=== PATIENT | female | born 1940 | race Caucasian/White ===

== ENCOUNTER 2016-12-20 06:59 | Observation (INO) | payer MEDICARE, OTHER ==
[2016-12-20] VITALS (28 sets, daily range): BP systolic 75–175; BP diastolic 41–123; PULSE 45–84; RESP 13–27; Ht 162.6 cm; Wt 62.0 kg
[~2016-12-20] VITALS: Ht 162.6 cm; Wt 62.0 kg
[2016-12-20] MEDS ORDERED: ASPI-664 PO (07:38)
[2016-12-20] MEDS ORDERED: TICA90TA PO (07:38)
[2016-12-20] MEDS ORDERED: PRAM0.25 PO (07:38)
[2016-12-20] MEDS ORDERED: OXYB5TAB22 PO (07:39)
[2016-12-20] MEDS ORDERED: ESOM40CA PO (07:41)
[2016-12-20] MEDS ORDERED: SITA1TAB5 PO (07:41)
[2016-12-20] MEDS ORDERED: GLIM1TAB2 PO (07:42)
[2016-12-20] MEDS ORDERED: LEVO50TA71 PO (07:42)
[2016-12-20] MEDS ORDERED: CARV6.2579 PO (07:43)
[2016-12-20] MEDS ORDERED: ALBU18HF INHALATION (07:43)
[2016-12-20 07:59] LABS: ADD SCAN DIFF NO
[2016-12-20 08:11] LABS: BASOPHIL # 0.1 10^3/ul (0.0-0.1); BASOPHILS % 1.1 % (0.0-2.0); EOSINOPHILS # 0.3 10^3/ul (0.0-0.5); EOSINOPHILS % 4.3 % (0.0-7.0); HEMATOCRIT 39.5 % (37.0-47.0); HEMOGLOBIN 12.5 g/dl (12.0-16.0); LYMPHOCYTES # 1.7 10^3/ul (0.8-2.9); LYMPHOCYTES % 26.9 % (15.0-51.0); MEAN CORPUSCULAR HGB CONC 31.6 g/dl (32.0-37.0); MEAN CORPUSCULAR VOLUME 82.1 fl (82.0-101.0); MEAN PLATELET VOLUME 12.1 fl (7.4-10.4); MONOCYTE # 0.5 10^3/ul (0.3-0.9); MONOCYTES % 7.6 % (0.0-11.0); NEUTROPHIL # 3.8 10^3/ul (1.6-7.5); NEUTROPHILS % 59.8 % (39.0-77.0); PLATELET COUNT 184 10^3/UL (140-415); RED BLOOD COUNT 4.81 10^6/ul (4.20-5.40); RED CELL DISTRIBUTION WIDTH 14.6 % (11.5-14.5); WHITE BLOOD COUNT 6.3 10^3/ul (4.8-10.8)
[2016-12-20 08:33] LABS: INR 1.03; PROTIME 13.5 Sec (12.2-14.2); PT RATIO 1.1
[2016-12-20 08:37] LABS: ALANINE AMINOTRANSFERASE 28 IU/L (13-69); ALBUMIN 4.3 g/dl (3.3-4.9); ALBUMIN/GLOBULIN RATIO 1.72; ALKALINE PHOSPHATASE 72 IU/L (42-121); ANION GAP 13 (8-16); ASPARTATE AMINO TRANSFERASE 17 IU/L (15-46); BILIRUBIN,INDIRECT 0.4 mg/dl (0-1.1); BILIRUBIN,TOTAL 0.4 mg/dl (0.2-1.3); CARBON DIOXIDE 25 mmol/L (21-31); CHLORIDE 107 mmol/L (97-110); CHOL/HDL RATIO 2.9 RATIO; CHOLESTEROL 145 mg/dl (100-200); CREATINE KINASE 35 IU/L (23-200); GLUCOSE 97 mg/dl (70-220); HDL CHOLESTEROL 49 mg/dl (33-92); TOTAL PROTEIN 6.8 g/dl (6.1-8.1); TRIGLYCERIDES 113 mg/dl (0-149)
[2016-12-20 08:48] LABS: CK-MB 1.71 ng/ml (0.0-2.4)
[2016-12-20 08:50] LABS: BLOOD UREA NITROGEN 14 mg/dl (7-20); CREATININE 0.67 mg/dl (0.44-1.00); POTASSIUM 4.3 mmol/L (3.5-5.1); SODIUM 141 mmol/L (135-144); TROPONIN-I < 0.012 ng/ml (0.00-0.12)
[2016-12-20] MEDS ORDERED: LIDOCAINE 1% (MDV) 20 ML INJ ONE (09:30)
[2016-12-20] MEDS ORDERED: IODIXANOL LOCM 100 ML BTL ONE ×3 (09:30→11:03)
[2016-12-20] MEDS ORDERED: FENTAnyl 50 MCG/ML VIAL ONE ×2 (09:31→11:17)
[2016-12-20] MEDS ORDERED: MIDAZOLAM 1 MG/ML 2 ML INJ ONE ×2 (09:31→11:09)
[2016-12-20] MEDS ORDERED: IODIXANOL LOCM 50 ML BTL ONE (10:08)
[2016-12-20] MEDS ORDERED: BIVALIRUDIN 250MG /NS 50 ML 50 ML IVPB ONE (10:08)
[2016-12-20] MEDS ORDERED: NITROGLYCERIN (IC) 100 MCG/ML INJ ONE (10:13)
[2016-12-20] MEDS ORDERED: TICAGRELOR 90 MG TABLET ONE (11:21)
[2016-12-20] MEDS ORDERED: SOD CHLORIDE 0.9% 1,000 ML IV SCH (11:27)
[2016-12-20] MEDS ORDERED: TICAGRELOR 90 MG TABLET PO SCH (11:30)
[2016-12-20] MEDS ORDERED: ONDANSETRON 4 MG INJ IV PRN (11:30)
[2016-12-20] MEDS: TICAGRELOR 90 MG TABLET PO SCH ×2 (12:00→21:03)
[2016-12-20] MEDS: ASPIRIN (EC) 81 MG TAB PO SCH (12:42)
[2016-12-20] MEDS: PRAMIPEXOLE 0.25 MG TAB PO SCH ×2 (12:42→21:47)
[2016-12-20] MEDS: LEVOTHYROXINE 50 MCG TAB PO SCH (12:42)
[2016-12-20] MEDS: PANTOPRAZOLE (EC) 40 MG TAB PO SCH (12:48)
--- NOTE | 2016-12-20 12:54 | SP ---
DATE OF PROCEDURE: 12/20/2016 REASON FOR PROCEDURE: Peripheral vascular disease and claudication, MARYJANE of around 0.7 with severe c laudication. PROCEDURE PERFORMED: 1. Abdominal angiogram and bilateral lower extremity runoff. 2. Angioplasty of the distal right iliac artery: 3. Stenting of the distal right iliac artery using 8 x 37 mm balloon expandable stent. SURGEON: Bola Inman MD INDICATIONS: A 76-year-old male with severe peripheral vascular disease, severe claudication and se yung leg pain, who was noted to have right iliac lesion. The patient underwent diagnostic angiograp hy and angioplasty of the right coronary artery. It was also decided to do a right iliac angioplast y and stent at the same time. DESCRIPTION OF PROCEDURE: Written informed consent obtained. Sheath was already in place. Pigtail was advanced. Abdominal angiogram with runoff was obtained. Then, I used a OWENS catheter and a [place] rumo wire was then advanced across from the left side sheath into the right iliac artery. Angiogram of the right iliac was directly obtained. Then, I used a stiff wire and advanced across the lesion . However, the stiff wire sheath was changed to a destination sheath. Angiogram was obtained again . Then, I used a 60 x 40 mm balloon was across the lesion and angiogram was obtained. Still signif icant residual stenosis was left. Then, a 80 x 37 mm [place] [employer] iliac stent was plac ed across the lesion and deployed it at 14 atmospheres. Final angiogram was obtained which showed g ood flow and no evidence of residual significant stenosis. Catheter and Glidewire were removed. Pe rclose which already has been placed in a preclose was closed. The patient tolerated the procedure without complication. FINDINGS: 1. Right iliac artery shows distally about 95% haziness/stenosis. Successful angioplasty stent no significant residual stenosis left. Right SFA about 60% stenosis at the mid focal . He has a 3-vessel runoff, but a poor flow prior to the stenting. 2. Left iliac artery appears very tortuous, diffuse disease, but no high-grade focal lesion. Left SFA has about 40% to 50% stenosis, given 3-vessel runoff. TOTAL CONTRAST USED: 90 mL contrast. CONCLUSION: Successful angioplasty and stenting of the right iliac artery. Dictated By: BOLA CONCEPCION/REBECCA Conf#: [id number] [facility]#: [id number]
[2016-12-20] MEDS ORDERED: GLUCOSE GEL 15 GRAM TUBE BUCCAL PRN (13:00)
[2016-12-20] MEDS ORDERED: GLUCOSE GEL 15 GRAM TUBE PO PRN ×2 (13:00)
[2016-12-20] MEDS ORDERED: PROVENTIL HFA 6.7GM INHALER INH SCH (13:00)
[2016-12-20] MEDS ORDERED: GLUCAGON 1 MG INJ IM PRN (13:00)
[2016-12-20] MEDS ORDERED: DEXTROSE 50% 50 ML SYRINGE IV PRN ×2 (13:00)
--- NOTE | 2016-12-20 16:02 | RADRPT ---
Vent Rate: 60 bpm RR Interval: 0 msec MO Interval: 162 msec QRS Duration: 96 msec QT Interval: 424 msec QTC Interval: 424 msec P-R-T [place]: 72 - 76 - 3 degrees Normal sinus rhythm with sinus arrhythmia Cannot rule out Anterior infarct , age undetermined T wave abnormality, consider inferior ischemia Abnormal ECG Electronically Signed By: Rigoberto Lara [id number]
--- NOTE | 2016-12-20 18:21 | HP ---
DATE OF ADMISSION: 12/20/2016 CHIEF COMPLAINT: Claudication. HISTORY OF PRESENT ILLNESS: This is a 76-year-old female with a past medical history of coronary ar latasha disease status post multiple PCIs and stent placements, and history of hypertension, history of diabetes, history of hypothyroidism, history of urinary urgency and GERD, who presents to [facility] to undergo elective angiography. The patient was noted to have severe periphera l vascular disease, severe claudication and leg pain in the outpatient setting. She was also noted to have a lesion of a right iliac artery. She underwent diagnostic angiography and angioplasty in o utpatient setting and it was decided that the patient to have an angioplasty of the right iliac felicity ry. The patient therefore went in to see Dr. Inman, underwent abdominal angiogram and stenting of the right distal iliac artery. The patient tolerated the procedure well without any complications. The patient was subsequently transferred to the intensive care unit for observation. Upon my evaluation of the patient at this time, she is clinically stable. Denies any fevers, chills , nausea, vomiting or any shortness of breath. PAST MEDICAL HISTORY: History of hypertension, history of diabetes, history of coronary artery dise ase, history of peripheral vascular disease. PAST SURGICAL HISTORY: Status post PCI multiple times. ALLERGIES: PATIENT IS ALLERGIC TO MORPHINE. FAMILY HISTORY: Noncontributory. SOCIAL HISTORY: Does not drink, smoke or do drugs. MEDICATIONS: The patient's medications have been reviewed and reconciled. REVIEW OF SYSTEMS: A 14-point review of systems was conducted. Pertinent positives in HPI, otherwi se negative. PHYSICAL EXAMINATION: VITAL SIGNS: Blood pressure is 148/77, respirations 14, pulse 74, temperature 97.5. HEENT: Head is normocephalic. Pupils are reactive to light and accommodation. HEART: Regular rate. LUNGS: Diminished breath sounds at the bases. ABDOMEN: Soft, nontender to palpation. No rebound or guarding. EXTREMITIES: Negative for clubbing, cyanosis, no edema. DERMATOLOGIC: No rashes. MUSCULOSKELETAL: No joint effusions. NEUROLOGIC: No focal deficits. LABORATORY DATA: Shows a white count 6.3, hemoglobin 12.5, hematocrit 39.5, platelet count 184. BM P and LFTs within normal limits. ASSESSMENT: This is a 76-year-old female who presents with: 1. Severe peripheral vascular disease. The patient is status post abdominal angiogram with angiopl asty and stenting of the distal right iliac artery. PLAN: 1. At this point is to monitor the patient in the intensive care unit. Will continue medical manag ement with antiplatelet therapy. Follow up with cardiology for further recommendations. 2. History of coronary artery disease, status post multiple PCIs in the past. Continue current medi jose management with aspirin, Plavix, Coreg. 3. Hypothyroidism. Continue Synthroid. 4. Diabetes. Continue Accu-Cheks, insulin sliding scale. 5. Hypertension. Continue current blood pressure regimen. 6. Urinary urgency, incontinence. Continue Ditropan. Please note I spent 25 minutes [id number] time with the patient, discussing code status. The jodee ent is FULL CODE. Dictated By: MIKI GONZALEZ/REBECCA Conf#: [id number] DID#: [id number]
[2016-12-20] MEDS: INSULIN ASPART [NOVOLOG] 3 ML PEN SC SCH ×2 (18:23→21:00)
[2016-12-20] MEDS: ACETAMINOPHEN 325 MG TAB PO PRN (18:24)
[2016-12-20] MEDS ORDERED: OXYBUTYNIN (XL) 5 MG TAB PO SCH (21:00)
[2016-12-20] MEDS ORDERED: hydrALAzine 20 MG INJ IV PRN (21:00)
[2016-12-20] MEDS: ALBUTEROL 18 GM INHALER INH SCH (22:04)
[2016-12-21] VITALS (13 sets, daily range): BP systolic 105–176; BP diastolic 53–87; PULSE 48–72; RESP 16–20
[2016-12-21] MEDS: ALBUTEROL 18 GM INHALER INH SCH ×3 (01:50→11:42)
[2016-12-21] MEDS ORDERED: ACCU-CHEK XX SCH (02:00)
[2016-12-21] MEDS: ACETAMINOPHEN 325 MG TAB PO PRN (02:40)
[2016-12-21] MEDS: PANTOPRAZOLE (EC) 40 MG TAB PO SCH (05:58)
[2016-12-21] MEDS: LEVOTHYROXINE 50 MCG TAB PO SCH (06:01)
[2016-12-21 06:10] LABS: ADD SCAN DIFF NO
[2016-12-21 06:34] LABS: BASOPHIL # 0.1 10^3/ul (0.0-0.1); BASOPHILS % 1.6 % (0.0-2.0); EOSINOPHILS # 0.4 10^3/ul (0.0-0.5); HEMATOCRIT 35.4 % (37.0-47.0); HEMOGLOBIN 11.4 g/dl (12.0-16.0); LYMPHOCYTES # 1.2 10^3/ul (0.8-2.9); LYMPHOCYTES % 20.9 % (15.0-51.0); MEAN CORPUSCULAR HEMOGLOBIN 26.3 pg (29.0-33.0); MEAN CORPUSCULAR HGB CONC 32.2 g/dl (32.0-37.0); MEAN CORPUSCULAR VOLUME 81.6 fl (82.0-101.0); MEAN PLATELET VOLUME 12.4 fl (7.4-10.4); MONOCYTE # 0.3 10^3/ul (0.3-0.9); NEUTROPHIL # 3.5 10^3/ul (1.6-7.5); PLATELET COUNT 159 10^3/UL (140-415); RED BLOOD COUNT 4.34 10^6/ul (4.20-5.40); RED CELL DISTRIBUTION WIDTH 14.6 % (11.5-14.5); WHITE BLOOD COUNT 5.5 10^3/ul (4.8-10.8)
[2016-12-21 07:23] LABS: ALBUMIN 3.9 g/dl (3.3-4.9); ALBUMIN/GLOBULIN RATIO 1.85; BILIRUBIN,INDIRECT 0.4 mg/dl (0-1.1); BILIRUBIN,TOTAL 0.4 mg/dl (0.2-1.3); CALCIUM 9.3 mg/dl (8.4-10.2); CREATININE 0.64 mg/dl (0.44-1.00); POTASSIUM 4.1 mmol/L (3.5-5.1)
[2016-12-21] MEDS ORDERED: GLIMEPIRIDE 2 MG TAB PO SCH (07:35)
[2016-12-21] MEDS: INSULIN ASPART [NOVOLOG] 3 ML PEN SC SCH ×2 (07:35→11:41)
--- NOTE | 2016-12-21 07:40 | SP ---
DATE OF PROCEDURE: 12/20/2016 PROCEDURE PERFORMED: 1. Left heart catheterization, selective right and left coronary angiography. 2. Left ____ angiogram. 3. Successful angioplasty and stenting of the proximal and mid to distal right coronary artery naida fry a 2.5 x 38 mm Synergy drug-eluting stent at the mid to distal and a 3.5 x 20 mm drug-eluting stent in the proximal. SURGEON: Bola Inman MD INDICATIONS: This is a pleasant 76-year-old female who was recommended to undergo angiography becau se of anginal chest pain, marked abnormal stress test showing significant ischemia in the RCA. The patient had recently undergone PCI of the left circumflex artery and ____ successfully underwent PTC A of the LAD and diagonal. FINDINGS: 1. Left main coronary artery has mild coronary artery disease. 2. Left anterior descending artery previous stent is widely patent with good flow distally. Diagon al has about 50% ostial stenosis at the site of stent. 3. Left circumflex artery has about 20% stenosis. 4. Right coronary artery has multiple areas of stenosis. Proximally it was 60%, mid ____ 80%. Aft er successful PTCA stenting of this lesion, there was no significant stenosis left. The posterolate ral artery had about 90% to 95% stenosis ostially. After successful angioplasty, there was less derrick n 20% residual stenosis left. 4. LVEDP was 18 with no significant gradient across the aortic valve. DESCRIPTION OF PROCEDURE: Written informed consent was obtained after risks and benefits were discu ssed with the patient. The patient was brought to the cath lab radiology technician. Right and left groins were prepped and draped in sterile fashion. Left groin area was anesthetized with 1% lidocaine. Using modified Seldinger technique, a 5-Welsh sheath was placed in the left femoral artery. Left femoral angiogr am was performed. Changed the sheath to a 7-Welsh sheath. JL4 catheter was advanced and engaged i n the left main coronary artery. Angiogram was obtained. JR4 guiding catheter was advanced and eng aged in the left ventricle. Hemodynamics recorded. Pullback aortic pressure was measured. The ___ _ catheter was advanced and engaged in the right coronary artery and angiogram was obtained. Then, I used a BMW wire to cross the posterolateral artery. Another BMW wire was used to cross the PDA ____ vessel. A 2.0 x 12 balloon was placed across the posterolateral artery and angioplasty of this lesion was done. The balloon was pulled back into the mid to distal RCA and angioplasty was do ne. Angiogram was obtained. The posterolateral appeared to be too small for a stent, but a 2.5 x 3 8 mm Synergy drug-eluting stent was placed across the mid to distal right coronary artery and stente d at 14 atmospheres. Angiogram was obtained. Then, I used a 3.0 noncompliant balloon which was put in the center and postdilated up to 16 atmospheres. Angiogram was obtained. The proximal right co ronary artery also appeared to be significant. The same balloon was used to predilate it. Finally, I used a 3.5 x 20 mm Synergy drug-eluting stent, which was placed across the lesion and deployed it at 12 atmospheres. Final angiogram was obtained which showed MAHESH 3 flow. No evidence of dissecti on, no significant residual stenosis. Catheter and Glidewire were removed. TOTAL CONTRAST USED: 90 mL. CONCLUSION: 1. Successful percutaneous transluminal coronary angioplasty and stenting of the proximal and mid t o distal right coronary artery using 2 drug-eluting stents. 2. Successful percutaneous coronary intervention of the posterolateral artery. RECOMMENDATIONS: Medical therapy, aspirin and Brilinta. ICU care overnight. Dictated By: BOLA CONCEPCION/REBECCA Conf#: [id number] DID#: [id number] CC: ;*EndCC*
[2016-12-21 08:21] LABS: CK-MB 2.26 ng/ml (0.0-2.4)
--- NOTE | 2016-12-21 08:38 | PN ---
DATE: 12/21/2016 CARDIOLOGY FOLLOWUP PROGRESS NOTE SUBJECTIVE: Discussed with the staff and Dr. Flor. No chest pain or pressure. No palpitation. Complains of upper back pain, worse with touch. Complains of being hungry and not being fed yet. MEDICATIONS: Reviewed. PHYSICAL EXAMINATION: VITAL SIGNS: Temperature 97.8, heart rate of 56, blood pressure 150/60, respiratory rate of 16, sat urating 95%. HEENT: Normocephalic, atraumatic. No acute distress. Pupils are equal. CARDIOVASCULAR: Regular rate and rhythm. PULMONARY: With no wheezes now. GASTROINTESTINAL: Soft, nontender. EXTREMITIES: No significant lower extremity edema. Pulses 2+ bilateral. NEUROLOGIC: Awake and alert. PSYCHIATRIC: Appears to be calm, pleasant. LABORATORY: Sodium 141, potassium 4.1, BUN of 11, creatinine 0.64, glucose of 141. ASSESSMENT AND PLAN: 1. Angina, abnormal stress test. 2. Status post percutaneous coronary intervention of right coronary artery. 3. Severe peripheral vascular disease with claudication, status post percutaneous transluminal dario oplasty and stenting of the right iliac artery. 4. Diabetes. 5. Hypertension. 6. Dyslipidemia. RECOMMENDATIONS: Continue aspirin and Brilinta. Continue beta ana laura. Thyroid supplement will be continued. Lipitor under good control with LDL of less than 100, at 73 only. She is supposed to b e taking Lipitor 80 mg p.o. daily. Will continue that as well. We will discharge the patient home. The patient is to follow up with me as an outpatient. Dictated By: BOLA CONCEPCION/REBECCA Conf#: [id number] DID#: [id number] CC: MIKI FLOR DO;*EndCC*
[2016-12-21 08:48] LABS: TROPONIN-I 0.278 ng/ml (0.00-0.12)
[2016-12-21] MEDS: PRAMIPEXOLE 0.25 MG TAB PO SCH (08:57)
[2016-12-21] MEDS: ASPIRIN (EC) 81 MG TAB PO SCH (08:57)
[2016-12-21] MEDS ORDERED: ASPIRIN (EC) 81 MG TAB PO SCH (09:00)
[2016-12-21] MEDS: TICAGRELOR 90 MG TABLET PO SCH (09:00)
--- NOTE | 2016-12-21 13:27 | DS ---
DATE OF ADMISSION: 12/20/2016 DATE OF DISCHARGE: 12/21/2016 HOSPITAL COURSE: This is a 76-year-old female with a past medical history of coronary artery diseas e, status post multiple PCIs, history of hypertension, diabetes, hepatitis, and history of urinary i ncontinence. She presented to [facility] to undergo elective angiography. The jennyfer carmichael was noted to have significant peripheral vascular disease and claudication of the leg in the o utpatient setting. The patient was taken by and underwent abdominal angiograp hy at [place]. The patient was admitted to intensive care unit for observation overnight. The jennyfer carmichael stable . No fevers, chills, nausea, vomiting. The patient at this point will be d ischarged home. She will follow up with the dining service inspector, Dr. Inman primary care physician. The patient's other medical problems, including diabetes, hepatitis, coronary artery disease have been stable. The patient was noted to have mild bradycardia. This is stable and asymptomatic for the patient. The patient's dining service inspector is aware. Currently, at this time, the patient will be discharged home and follow up with her dining service inspector FINAL DIAGNOSIS: 1. Status post 2. Status post angiogram and stenting . 3. Coronary artery disease, status post percutaneous coronary intervention. 4. 5. Diabetes. 6. Hypertension. 7. Urinary incontinence. 8. asymptomatic FINAL MEDICATIONS: See reconciliation list. At the time of discharge, the time spent on the patient's discharge. Dictated By: MIKI GONZALEZ/REBECCA Conf#: [id number] DID#: [id number]
[2016-12-21] MEDS ORDERED: ATORVASTATIN 80 MG TAB PO SCH (21:00)
== END 2016-12-21 12:45 | disposition home or self-care (01) ==
LOC: SDS 06:59 → ICU 11:38
PROVIDERS: ADMIT Internal Medicine Interventional Cardiology; ATTEND Internal Medicine Interventional Cardiology
DX: I70.211 Atherosclerosis of native arteries of extremities with intermittent claudication, right leg (principal); I10 Essential (primary) hypertension; E11.9 Type 2 diabetes mellitus without complications; I25.10 Atherosclerotic heart disease of native coronary artery without angina pectoris; Z95.5 Presence of coronary angioplasty implant and graft; Z88.5 Allergy status to narcotic agent; E03.9 Hypothyroidism, unspecified; K21.9 Gastro-esophageal reflux disease without esophagitis; Z79.02 Long term (current) use of antithrombotics/antiplatelets; R39.15 Urgency of urination; R32 Unspecified urinary incontinence; E78.5 Hyperlipidemia, unspecified
CPT/HCPCS: 37221; 75630; 80053; 80061; 82550; 82553; 82962; 83036; 83735; 84484; 85025; 85610; 85730; 93005; 93458; 96360; 96361; 96372; C1725; C1760; C1769; C1874; C1875; C1887; C1894; C9600; G0378; J0583; J1644; J1815; J2250; J3010; Q9967